=== PATIENT | female | born 1935 | race Caucasian/White ===

== ENCOUNTER 2017-09-07 19:23 | Emergency (ER) | payer MEDICARE ==
[~2017-09-07] VITALS: Ht 165.1 cm; Wt 61.7 kg
[2017-09-07] MEDS ORDERED: DIPHTH/TETANUS/ACEL. PERTUSSIS 0.5 ML SYR IM ONE (20:00)
[2017-09-07] MEDS ORDERED: CLONIDINE HCL 0.1 MG TAB PO ONE (20:15)
[2017-09-07] MEDS ORDERED: INSULIN REGULAR, HUMAN 100 UNIT/1 ML 3ML VIAL IV ONE (20:15)
[2017-09-07] MEDS ORDERED: SODIUM CHLORIDE 0.9% 1000ML 1,000 ML IV ONE (20:15)
[2017-09-07] MEDS ORDERED: ASPIR 8181 MG (21:10)
[2017-09-07] MEDS ORDERED: [UNRECOGNIZED DRUG - OTHER] PEG (21:10)
[2017-09-07] MEDS ORDERED: HYDROCHLOROTHIA25 MG (21:10)
[2017-09-07] MEDS ORDERED: ATENOLOL50 MG PEG (21:10)
[2017-09-07] MEDS ORDERED: LOSARTAN POTAS100 MG PO (21:10)
[2017-09-07] MEDS ORDERED: LIPITOR20 MG (21:10)
[2017-09-07] MEDS ORDERED: METFORMIN HCL500 M2 PO (21:10)
[2017-09-07] MEDS ORDERED: PLAVIX75 MG PO (21:10)
[2017-09-07] MEDS ORDERED: CLONIDINE HCL 0.2 MG TAB PO ONE (22:00)
[2017-09-07] MEDS ORDERED: LEVOFLOXACIN 500MG/D5W 100ML 100 ML IV ONE (22:00)
[2017-09-07] MEDS ORDERED: ACETAMINOPHEN 325 MG TAB PO ONE (22:45)
[2017-09-07 23:38] VITALS: BP 163/69
== END 2017-09-07 23:30 | disposition home or self-care (01) ==
LOC: FSED 19:23
DX: S00.83XA Contusion of other part of head, initial encounter (principal); S41.102A Unspecified open wound of left upper arm, initial encounter; M25.562 Pain in left knee; W18.39XA Other fall on same level, initial encounter; Y92.007 Garden or yard of unspecified non-institutional (private) residence as the place of occurrence of the external cause; J18.9 Pneumonia, unspecified organism; I10 Essential (primary) hypertension; E11.9 Type 2 diabetes mellitus without complications; I51.9 Heart disease, unspecified
CPT/HCPCS: 70450; 71046; 72126; 80053; 81003; 82553; 82948; 83880; 84484; 85025; 93005; 99284; J1956; J7030

== ENCOUNTER 2018-03-14 13:46 | Emergency (ER) | payer MEDICARE ==
[~2018-03-14] VITALS: Ht 165.1 cm; Wt 61.7 kg
[~2018-03-14 13:46] MED LIST: ASPIR 8181 MG; ATENOLOL50 MG PEG; HYDROCHLOROTHIA25 MG; LIPITOR20 MG; LOSARTAN POTAS100 MG PO; METFORMIN HCL500 M2 PO; PLAVIX75 MG PO; [UNRECOGNIZED DRUG - OTHER] PEG
[2018-03-14 19:41] VITALS: BP 180/68
== END 2018-03-14 14:37 | disposition left against medical advice (07) ==
LOC: FSED 13:46
DX: M25.532 Pain in left wrist (principal); G56.02 Carpal tunnel syndrome, left upper limb; I10 Essential (primary) hypertension; E11.9 Type 2 diabetes mellitus without complications; Z95.1 Presence of aortocoronary bypass graft
CPT/HCPCS: 99282

== ENCOUNTER 2019-02-06 10:50 | Emergency (ER) | payer MEDICARE ==
[~2019-02-06] VITALS: Ht 162.6 cm; Wt 60.1 kg
[2019-02-06 11:48] VITALS: BP 238/89
== END 2019-02-06 11:46 | disposition home or self-care (01) ==
LOC: FSED 10:50
DX: E11.65 Type 2 diabetes mellitus with hyperglycemia (principal); E11.40 Type 2 diabetes mellitus with diabetic neuropathy, unspecified; I10 Essential (primary) hypertension
CPT/HCPCS: 99282